=== PATIENT | female | born 1990 | race Two or more races ===

== ENCOUNTER 2022-02-04 11:34 | Emergency (ER) | payer MEDICAID, OTHER ==
[~2022-02-04] VITALS: Ht 162.6 cm; Wt 59.0 kg
[2022-02-04 12:17] LABS: Basophils # (auto) 0 10 ^3/uL (0-0.2); Basophils % (auto) 0.6 % (0.0-2.0); Eosinophils # (auto) 0 10 ^3/uL (0-0.8); Eosinophils % (auto) 0.8 % (0.0-7.0); Hematocrit 40.8 % (36.0-46.0); Hemoglobin 13.5 g/dL (12.2-16.2); Lymphocytes # (auto) 1.6 10 ^3/uL (0.4-5.4); Lymphocytes % (auto) 25.1 % (10.0-50.0); Mean Corpuscular Hemoglobin 28.3 pg (28.0-32.0); Mean Corpuscular Hgb Conc. 33.1 g/dL (32.0-36.0); Mean Corpuscular Volume 85.5 fL (80.0-100.0); Monocytes # (auto) 0.4 10 ^3/uL (0-1.3); Monocytes % (auto) 6.9 % (0.0-12.0); Neutrophils # (auto) 4.1 10 ^3/uL (1.6-8.6); Neutrophils % (auto) 66.6 % (37.0-80.0); Red Blood Cells 4.78 10^6/uL (4.0-5.20); Red Cell Distribution Width 14.5 % (11.8-14.3); White Blood Cell 6.2 10^3/uL (4.4-10.8)
[2022-02-04 13:22] LABS: Urine Specific Gravity 1.025 (1.001-1.035)
[2022-02-04 13:23] LABS: Urine Blood Negative /uL (Negative)
[2022-02-04 13:24] LABS: Urine Bacteria MANY /hpf (None Seen)
[2022-02-04] MEDS ORDERED: NITR-87 PO (14:30)
[2022-02-04 14:58] VITALS: BP 114/70
== END 2022-02-04 14:56 | disposition home or self-care (01) ==
LOC: ER 11:34
DX: O20.0 Threatened abortion (principal); O23.41 Unspecified infection of urinary tract in pregnancy, first trimester; N39.0 Urinary tract infection, site not specified; Z3A.08 8 weeks gestation of pregnancy
CPT/HCPCS: 36415; 76801; 76817; 81001; 84702; 85025

== ENCOUNTER 2022-06-23 21:37 | Observation (INO) | payer MEDICAID ==
[~2022-06-23] VITALS: Ht 162.6 cm; Wt 68.0 kg
[~2022-06-23 21:37] MED LIST: NITR-87 PO
[2022-06-23 23:35] LABS: Urine Bacteria NONE SEEN /hpf (None Seen); Urine Blood 2+ /uL (Negative); Urine Mucus FEW (None Seen); Urine Specific Gravity 1.027 (1.001-1.035); Urine WBC 7 /hpf (0 - 5)
[2022-06-23 23:43] LABS: Basophils # (auto) 0 10 ^3/uL (0-0.2); Basophils % (auto) 0.3 % (0.0-2.0); Eosinophils # (auto) 0 10 ^3/uL (0-0.8); Hematocrit 34.9 % (36.0-46.0); Hemoglobin 11.3 g/dL (12.2-16.2); Lymphocytes # (auto) 1.2 10 ^3/uL (0.4-5.4); Lymphocytes % (auto) 11.6 % (10.0-50.0); Mean Corpuscular Hemoglobin 27.4 pg (28.0-32.0); Mean Corpuscular Hgb Conc. 32.4 g/dL (32.0-36.0); Mean Corpuscular Volume 84.6 fL (80.0-100.0); Monocytes # (auto) 0.5 10 ^3/uL (0-1.3); Monocytes % (auto) 4.9 % (0.0-12.0); Neutrophils # (auto) 8.6 10 ^3/uL (1.6-8.6); Neutrophils % (auto) 83.2 % (37.0-80.0); Nucleated Red Blood Cells % 0.1 %; Red Blood Cells 4.13 10^6/uL (4.0-5.20); Red Cell Distribution Width 14.6 % (11.8-14.3); White Blood Cell 10.4 10^3/uL (4.4-10.8)
== END 2022-06-24 00:28 | disposition home or self-care (01) ==
LOC: LDRP 21:37
PROVIDERS: ADMIT Obstetrics & Gynecology Obstetrics; ATTEND Obstetrics & Gynecology Obstetrics
DX: O26.892 Other specified pregnancy related conditions, second trimester (principal); R10.30 Lower abdominal pain, unspecified; Z3A.26 26 weeks gestation of pregnancy
CPT/HCPCS: 36415; 59025; 81001; 81002; 85025; 94760; G0378

== ENCOUNTER 2022-12-17 05:33 | Emergency (ER) | payer MEDICAID ==
[~2022-12-17] VITALS: Ht 160 cm; Wt 64.7 kg
[2022-12-17 06:45] LABS: Basophils # (auto) 0 10 ^3/uL (0-0.2); Basophils % (auto) 0.8 % (0.0-2.0); Eosinophils # (auto) 0.1 10 ^3/uL (0-0.8); Eosinophils % (auto) 1.2 % (0.0-7.0); Hematocrit 42.9 % (36.0-46.0); Hemoglobin 14.3 g/dL (12.2-16.2); Lymphocytes # (auto) 1.9 10 ^3/uL (0.4-5.4); Lymphocytes % (auto) 34.6 % (10.0-50.0); Mean Corpuscular Hemoglobin 28.4 pg (28.0-32.0); Mean Corpuscular Hgb Conc. 33.4 g/dL (32.0-36.0); Mean Corpuscular Volume 85.1 fL (80.0-100.0); Monocytes # (auto) 0.4 10 ^3/uL (0-1.3); Monocytes % (auto) 6.4 % (0.0-12.0); Neutrophils # (auto) 3.2 10 ^3/uL (1.6-8.6); Nucleated Red Blood Cells % 0.3 %; Red Blood Cells 5.05 10^6/uL (4.0-5.20); Red Cell Distribution Width 15.4 % (11.8-14.3); White Blood Cell 5.5 10^3/uL (4.4-10.8)
[2022-12-17 07:01] LABS: Albumin 4.1 g/dL (3.4-5.0); Bilirubin, Total 0.4 mg/dL (0.2-1.0); Calcium 8.8 mg/dL (8.5-10.1); Potassium 3.6 mmol/L (3.5-5.1); Total Protein 7.9 g/dL (6.4-8.2)
[2022-12-17 07:12] LABS: Urine Bacteria NONE SEEN /hpf (None Seen); Urine Blood Negative /uL (Negative); Urine Mucus FEW (None Seen); Urine Specific Gravity 1.028 (1.001-1.035); Urine WBC 5 /hpf (0 - 5)
[2022-12-17] MEDS ORDERED: IBU600T PO (08:10)
[2022-12-17] MEDS ORDERED: NITR-87 PO (08:10)
[2022-12-17 08:53] VITALS: BP 112/62
== END 2022-12-17 08:11 | disposition home or self-care (01) ==
LOC: ER 05:33
DX: K80.20 Calculus of gallbladder without cholecystitis without obstruction (principal); N39.0 Urinary tract infection, site not specified
CPT/HCPCS: 36415; 74176; 80053; 81001; 83690; 85025

== ENCOUNTER 2023-11-02 06:05 | Emergency (ER) | payer MEDICAID ==
[~2023-11-02] VITALS: Ht 160 cm; Wt 55.6 kg
[~2023-11-02 06:05] MED LIST changes: +IBU600T PO
[2023-11-02] MEDS ORDERED: LORATADINE 10 MG TAB PO ONE (06:45)
[2023-11-02 07:22] VITALS: BP 122/62; PULSE 81; RESP 17; TEMP 98.1; O2SAT 98
[2023-11-02] MEDS ORDERED: methylPREDNISolone SOD SUCC 125 MG/2 ML VL IV ONE (08:00)
[2023-11-02] MEDS ORDERED: HYD25TP TOP (09:16)
[2023-11-02] MEDS ORDERED: CALA1SUS2 EX (09:16)
== END 2023-11-02 09:21 | disposition home or self-care (01) ==
LOC: ER 06:05
DX: T78.40XA Allergy, unspecified, initial encounter (principal); X58.XXXA Exposure to other specified factors, initial encounter
CPT/HCPCS: 96374; 99283; J2930

== ENCOUNTER → 2023-11-03 21:06 | Emergency (ER) | payer MEDICAID ==
[~2023-11-03] VITALS: Ht 160 cm; Wt 56.5 kg
[~2023-11-03 21:06] MED LIST changes: +CALA1SUS2 EX; +HYD25TP TOP
[2023-11-03 21:53] VITALS: BP 118/76; PULSE 74; RESP 16; O2SAT 98
[2023-11-03] MEDS: diphenhdrAMINE HCL 50 MG/1 ML VL IM ONE (21:58)
[2023-11-03] MEDS: methylPREDNISolone SOD SUCC 125 MG/2 ML VL IM ONE (21:59)
== END | disposition left against medical advice (07) ==
LOC: ER 21:06
DX: T78.40XA Allergy, unspecified, initial encounter (principal); Z53.21 Procedure and treatment not carried out due to patient leaving prior to being seen by health care provider; X58.XXXA Exposure to other specified factors, initial encounter
CPT/HCPCS: 96372; 99281; J1200; J2930

== ENCOUNTER 2024-06-04 09:06 | Emergency (ER) | payer MEDICAID ==
[~2024-06-04] VITALS: Ht 160 cm; Wt 58.4 kg
[2024-06-04 09:53] VITALS: BP 124/77; PULSE 74; RESP 17; TEMP 98; O2SAT 98
[2024-06-04] MEDS ORDERED: NAPR-746 PO (10:35)
== END 2024-06-04 10:43 | disposition home or self-care (01) ==
LOC: ER 09:06
DX: M79.674 Pain in right toe(s) (principal); Z79.1 Long term (current) use of non-steroidal anti-inflammatories (NSAID); Z79.899 Other long term (current) drug therapy
CPT/HCPCS: 36415; 73660; 84550